=== PATIENT | female | born 1980 | race Caucasian/White ===

== ENCOUNTER 2019-08-23 07:28 | Emergency (ER) | payer SELFPAY ==
[~2019-08-23] VITALS: Ht 170.2 cm; Wt 113.6 kg
[2019-08-23 07:37] VITALS: BP 154/90; Ht 170.2 cm; Wt 113.6 kg
[2019-08-23] MEDS ORDERED: HCTZ25 MG PO (07:39)
[2019-08-23] MEDS ORDERED: SYNTHROID112 MCG PO (07:39)
[2019-08-23] MEDS ORDERED: HYDROCODON-ACE1 EAC7 PO ×2 (07:40→08:04)
[2019-08-23] MEDS ORDERED: ROPINIROLE HCL2 MG PO (07:41)
[2019-08-23] MEDS ORDERED: ZYLOPRIM100 MG (07:42)
[2019-08-23] MEDS ORDERED: CYCLOBENZAPRINE10 MG PO (08:04)
== END 2019-08-23 08:15 | disposition home or self-care (01) ==
LOC: D.ER 07:28
DX: S39.012A Strain of muscle, fascia and tendon of lower back, initial encounter (principal); M51.36 Other intervertebral disc degeneration, lumbar region; M47.9 Spondylosis, unspecified; W18.2XXA Fall in (into) shower or empty bathtub, initial encounter; Y93.9 Activity, unspecified; Y92.9 Unspecified place or not applicable

== ENCOUNTER 2019-09-24 13:09 | Emergency (ER) | payer SELFPAY ==
[~2019-09-24] VITALS: Ht 170.2 cm; Wt 118.2 kg
[~2019-09-24 13:09] MED LIST: CYCLOBENZAPRINE10 MG PO; HCTZ25 MG PO; HYDROCODON-ACE1 EAC7 PO; ROPINIROLE HCL2 MG PO; SYNTHROID112 MCG PO; ZYLOPRIM100 MG
[2019-09-24 13:18] VITALS: Ht 170.2 cm; Wt 118.2 kg
[2019-09-24] MEDS ORDERED: OMEPRAZOLE20 M1 PO (14:03)
[2019-09-24] MEDS ORDERED: ZANAFLEX4 MG PO (14:03)
[2019-09-24] MEDS ORDERED: VOLTAREN75 MG PO (14:03)
[2019-09-24] MEDS ORDERED: STERAPRED 5MG 65 M1 PO (14:04)
[2019-09-24 14:28] VITALS: BP 146/85
== END 2019-09-24 14:28 | disposition home or self-care (01) ==
LOC: D.ER 13:09
DX: M54.9 Dorsalgia, unspecified (principal); E03.9 Hypothyroidism, unspecified; G89.29 Other chronic pain